=== PATIENT | female | born 1965 | race Caucasian/White ===

== ENCOUNTER 2018-09-17 09:48 | Day surgery (SDC) | payer OTHER ==
[2018-09-17] MEDS ORDERED: LIDOCAINE 4% SOLUTION 50 ML BTL (10:24)
[2018-09-17] MEDS ORDERED: MIDAZOLAM 1 MG/ML 2 ML INJ ×2 (11:13)
[2018-09-17] MEDS ORDERED: FENTAnyl 50 MCG/ML VIAL (11:13)
== END 2018-09-17 11:13 | disposition home or self-care (01) ==
LOC: GIL 09:48
DX: K29.50 Unspecified chronic gastritis without bleeding (principal)
CPT/HCPCS: 43239; 88305; 88312